=== PATIENT | male | born 1940 | race Caucasian/White ===

== ENCOUNTER 2021-12-17 07:14 | Outpatient (CLI) | payer OTHER ==
[~2021-12-17 07:14] MED LIST: AMOX TR-K CLV 81 TAB; ATENOLOL50 MG PO; BACTRIM DS TABL1 TAB PO; PNEU16DI2; TAMS0.4C; ZESTRIL20 MG
== END 2021-12-17 07:18 | disposition home or self-care (01) ==
LOC: TOM 07:14
PROVIDERS: ATTEND Internal Medicine Gastroenterology
DX: K63.5 Polyp of colon (principal); Z80.0 Family history of malignant neoplasm of digestive organs